=== PATIENT | female | born 1935 | race Caucasian/White ===

== ENCOUNTER 2018-05-20 15:04 | Emergency (ER) | payer MEDICARE ==
[~2018-05-20 15:04] MED LIST: ATEN25TA PO; BIOT25008 PO; CALC-190 PO; DILT360C16 PO; FISH OIL PO; FOLIC ACID PO; FURO40TA5 PO; ISOS20TA7 PO; LEVOTHYROXINE PO; LUTE40CA PO; MELO-106 PO; NITROGLYCERIN SPRAY SL; OXYB15TA PO; PREM125 PO; SENN-2 PO; UBID100C10 PO; VITA400C25 PO; VITAMIN 2 PO; VITAMIN D PO; WARFARIN PO
[2018-05-20 16:03] LABS: EOSINOPHILS % (AUTO) 2.6 % (0.0-8.0); HEMATOCRIT 39.3 % (36-48); LYMPHOCYTES % (AUTO) 19.6 % (21.0-51.0); MEAN CORPUSCULAR HGB CONC 32.4 g/dL (32.0-36.0); MEAN CORPUSCULAR VOLUME 92.6 fL (79-99); MONOCYTES % (AUTO) 10.3 % (3.0-13.0); NEUTROPHILS % (AUTO) 66.5 % (40.0-77.0); PLATELET COUNT (AUTO) 113 K/uL (130-400); RED BLOOD CELL COUNT(AUTO) 4.25 MIL/uL (4.00-5.50); RED CELL DISTRIBUTION WIDTH 15.9 % (11.0-15.5); WHITE BLOOD COUNT (AUTO) 9.8 K/uL (4.8-10.8)
[2018-05-20 16:04] LABS: APPEARANCE,URINE Clear (CLEAR); BILIRUBIN,URINE Negative (NEGATIVE); COLOR,URINE Dark Yellow (YELLOW); GLUCOSE, URINE (UA) Negative (NEGATIVE); KETONES,URINE Trace mg/dL (NEGATIVE); LEUKOCYTE ESTERASE ,URINE Moderate (NEGATIVE); NITRATE,URINE Negative (NEGATIVE); OCCULT BLOOD,URINE Negative (NEGATIVE); PROTEIN,URINE POS 1+ (NEGATIVE)
[2018-05-20 16:10] LABS: CREATININE 1.9 mg/dL (0.5-1.5); POTASSIUM 4.3 mmol/L (3.5-5.1)
[2018-05-20 16:12] LABS: INR 1.18 (0.85-1.15); PARTIAL THROMBOPLASTIN TIME 32.8 SEC (26.3-35.5); PROTHROMBIN TIME 12.4 SEC (9.6-11.6)
[2018-05-20 16:15] LABS: ALBUMIN 3.5 g/dL (3.5-5.0); BILIRUBIN,TOTAL 1.1 mg/dL (0.2-1.0); TOTAL PROTEIN, SERUM 7.4 g/dL (6.0-8.3)
[2018-05-20 16:19] LABS: BACTERIA,URINE Moderate /HPF (None Seen); RBC,URINE 0-1 /HPF (0-1); SQUAMOUS EPITHELIAL CELL,UR Few /HPF (0-2)
[2018-05-20] MEDS ORDERED: FUROSEMIDE 10 MG/ML 2ML VIAL ONE (18:08)
== END 2018-05-20 19:39 | disposition home or self-care (01) ==
LOC: EDH 15:04
DX: I88.9 Nonspecific lymphadenitis, unspecified (principal); I87.8 Other specified disorders of veins; I48.91 Unspecified atrial fibrillation; Z88.0 Allergy status to penicillin; Z88.1 Allergy status to other antibiotic agents
CPT/HCPCS: 36415; 70490; 71045; 71250; 80053; 81001; 82550; 84484; 85025; 85610; 85730; 93005; 96374; 99284; J1940

== ENCOUNTER 2018-07-27 07:30 | Observation (INO) | payer MEDICARE ==
[2018-07-26 11:10] VITALS: BP 133/76
[2018-07-26 11:20] LABS: BASOPHILS % (AUTO) 0.6 % (0.0-5.0); EOSINOPHILS % (AUTO) 1.9 % (0.0-8.0); HEMATOCRIT 37.7 % (36-48); LYMPHOCYTES % (AUTO) 11.6 % (21.0-51.0); MEAN CORPUSCULAR HEMOGLOBIN 31.5 pg (27.0-33.0); MEAN CORPUSCULAR HGB CONC 33.3 g/dL (32.0-36.0); MEAN CORPUSCULAR VOLUME 94.6 fL (79-99); MONOCYTES % (AUTO) 11.6 % (3.0-13.0); NEUTROPHILS % (AUTO) 74.3 % (40.0-77.0); PLATELET COUNT (AUTO) 133 K/uL (130-400); RED BLOOD CELL COUNT(AUTO) 3.98 MIL/uL (4.00-5.50); RED CELL DISTRIBUTION WIDTH 15.8 % (11.0-15.5)
[2018-07-26 11:28] LABS: CREATININE 1.9 mg/dL (0.5-1.5); POTASSIUM 4.6 mmol/L (3.5-5.1)
[2018-07-26 11:47] LABS: INR 1.15 (0.85-1.15); PARTIAL THROMBOPLASTIN TIME 34.4 SEC (26.3-35.5)
[2018-07-27] VITALS (7 sets, daily range): BP systolic 91–138; BP diastolic 50–105
[~2018-07-27] VITALS: Ht 149.9 cm; Wt 61.7 kg
[~2018-07-27 07:30] MED LIST changes: +APIX5TAB PO; -BIOT25008 PO; -CALC-190 PO; +CHOL100040 PO; +DILT120C92 PO; +DILT180C86 PO; -DILT360C16 PO; -FOLIC ACID PO; +FURO-151 PO; -FURO40TA5 PO; -ISOS20TA7 PO; +LEVO100T4 PO; -LEVOTHYROXINE PO; +PRAV40TA3 PO; +SENN-141 PO; -SENN-2 PO; -UBID100C10 PO; -VITA400C25 PO; -VITAMIN 2 PO; -VITAMIN D PO; -WARFARIN PO
[2018-07-27] MEDS ORDERED: SODIUM CHLORIDE 0.9% 1000ML 1,000 ML IV ONE (09:24)
[2018-07-27] MEDS ORDERED: MIDAZOLAM HCL 1 MG/ML 2ML VIAL ONE ×4 (13:27→14:41)
[2018-07-27] MEDS ORDERED: VANCOMYCIN 1GM+NS 250ML 500 ML IV ONE (13:28)
[2018-07-27] MEDS ORDERED: LIDOCAINE HCL 1% MDV 50ML VIAL ONE (13:28)
[2018-07-27] MEDS ORDERED: FENTANYL CITRATE PF 50 MCG/1 ML 2ML VIAL ONE (13:28)
[2018-07-27] MEDS ORDERED: BUPIVACAINE/PF 0.25% 30ML VIAL IJ ONE (13:31)
[2018-07-27] MEDS ORDERED: FAMOTIDINE/PF 20 MG/2 ML VIAL IV ONE (15:10)
[2018-07-27] MEDS: ACETAMINOPHEN 325 MG TAB PO PRN (17:11)
[2018-07-27] MEDS ORDERED: ONDANSETRON HCL 4 MG/2 ML VIAL ONE (17:33)
[2018-07-27] MEDS ORDERED: DILTIAZEM HCL 120 MG CAP.SR.24H PO ONE (20:12)
[2018-07-27] MEDS ORDERED: OXYBUTYNIN CHLORIDE 5 MG TABLET ONE ×2 (20:13→20:16)
[2018-07-27] MEDS ORDERED: DILTIAZEM HCL 180 MG CAP.SR.24H PO ONE (20:16)
[2018-07-27] MEDS: MELOXICAM 7.5 MG TABLET PO SCH (20:20)
[2018-07-27] MEDS ORDERED: OXYBUTYNIN 5 MG TAB.SR.24H PO SCH (21:00)
[2018-07-27] MEDS ORDERED: SENNOSIDES PO SCH (21:00)
[2018-07-27] MEDS ORDERED: SIMVASTATIN 20 MG TABLET PO SCH (21:00)
[2018-07-27] MEDS ORDERED: DOCUSATE SODIUM PO SCH (21:00)
--- NOTE | 2018-07-27 21:00 | NUR ---
PT IN BED, AAOX3. PERRLA. NO DISTRESS NOTED. PT STATES LAST BM 07/26. HOME MEDICATIONS NOT AT BEDSIDE. SO HAD TO CALL PHARMACY. PT NOT ABLE TO RECEIVE HER SENNA DUE TO DIFFERENT DOSE. PT STATES NO PAIN. INCISION IS CLEAN AND DRY. LEFT SLING IN PLACE. BEDREST WAS OVER AT 1930.
--- NOTE | 2018-07-27 22:37 | NUR ---
SPOKE TO MONICA BOO. NOTIFIED HIM ABOUT PENDING TO SEE PT. TOLD HIM PT HAD BEEN LEAD CHANGE DURING THE DAY AND WAS TRANSFERRED TO HOSPITALIST CARE.
[2018-07-28 01:38] VITALS: BP 140/88
[2018-07-28 04:00] VITALS: BP 132/54
[2018-07-28] MEDS ORDERED: LEVOTHYROXINE 100 MCG TABLET PO SCH (06:30)
[2018-07-28 07:39] VITALS: BP 128/75
[2018-07-28] MEDS: ACETAMINOPHEN 325 MG TAB PO PRN (07:40)
[2018-07-28] MEDS: MELOXICAM 7.5 MG TABLET PO SCH (07:40)
[2018-07-28] MEDS ORDERED: LUTEIN 40 MG PO SCH (09:00)
[2018-07-28] MEDS ORDERED: FUROSEMIDE 40 MG TABLET PO SCH (09:00)
[2018-07-28] MEDS ORDERED: DILTIAZEM HCL 180 MG CAP.SR.24H PO SCH (09:00)
[2018-07-28] MEDS ORDERED: ESTROGENS,CONJUGATED 0.625 MG TAB PO SCH (09:00)
[2018-07-28] MEDS ORDERED: ATENOLOL 25 MG TABLET PO SCH (09:00)
[2018-07-28 11:57] VITALS: BP 95/54
[2018-07-29] MEDS ORDERED: DILTIAZEM HCL 120 MG CAP.SR.24H PO SCH (09:00)
== END 2018-07-28 14:42 | disposition home or self-care (01) ==
LOC: DAH 07:30 → DAHIP 07:31 → 2DH 15:40
PROVIDERS: ADMIT Internal Medicine; ATTEND Internal Medicine
DX: I48.0 Paroxysmal atrial fibrillation (principal); I44.30 Unspecified atrioventricular block; C50.919 Malignant neoplasm of unspecified site of unspecified female breast; I12.9 Hypertensive chronic kidney disease with stage 1 through stage 4 chronic kidney disease, or unspecified chronic kidney disease; N18.9 Chronic kidney disease, unspecified; I45.9 Conduction disorder, unspecified; M54.17 Radiculopathy, lumbosacral region; Z95.0 Presence of cardiac pacemaker
CPT/HCPCS: 33216; 36415; 71045; 80048; 85025; 85610; 85730; 93005; A4606; C1769 ×2; C1898; G0378 ×31; J2250 ×4; J3010; J3370; J3490 ×2; J7030; 99156; 99157; J2405

== ENCOUNTER → 2018-08-08 | Outpatient (CLI) | payer MEDICARE | END | disposition home or self-care (01) | LOC: RAH 11:08 | PROVIDERS: ATTEND Family Medicine | DX: R91.1 Solitary pulmonary nodule (principal); R59.0 Localized enlarged lymph nodes; M47.812 Spondylosis without myelopathy or radiculopathy, cervical region; Q25.49 Other congenital malformations of aorta | CPT/HCPCS: 70490 ==

== ENCOUNTER → 2018-08-20 | Outpatient (CLI) | payer MEDICARE | END | disposition home or self-care (01) | LOC: RAH 13:20 | PROVIDERS: ATTEND Family Medicine | DX: I51.7 Cardiomegaly (principal) | CPT/HCPCS: 71250 ==

== ENCOUNTER → 2019-08-01 | Outpatient (CLI) | payer MEDICARE ==
[~2019-08-01] MED LIST changes: -OXYB15TA PO; +OXYB15TA19 PO
== END | disposition home or self-care (01) ==
LOC: RAH 09:21
PROVIDERS: ATTEND Family Medicine
DX: M46.1 Sacroiliitis, not elsewhere classified (principal); M43.16 Spondylolisthesis, lumbar region
CPT/HCPCS: 72192

== ENCOUNTER 2019-08-15 06:00 | Day surgery (SDC) | payer MEDICARE ==
[2019-08-13 11:34] VITALS: BP 142/68
[2019-08-15] VITALS (11 sets, daily range): BP systolic 107–136; BP diastolic 46–78
[~2019-08-15] VITALS: Ht 149.9 cm; Wt 55.0 kg
[~2019-08-15 06:00] MED LIST changes: +DOCU100P MC; -MELO-106 PO; +vitamin b12 PO; +vitamin c PO
[2019-08-15] MEDS ORDERED: LACTATED RINGERS 1000ML 1,000 ML IV ONE (06:46)
[2019-08-15] MEDS ORDERED: CLINDAMYCIN 900 MG/D5% WATER 50 ML IV ONE (06:46)
[2019-08-15] MEDS ORDERED: SODIUM BICARB [NEONATAL] 4.2% 10ML SYG ONE (07:05)
[2019-08-15] MEDS ORDERED: LIDOCAINE HCL 1% 20 ML VIAL ONE ×2 (07:05→07:46)
[2019-08-15] MEDS ORDERED: MIDAZOLAM HCL 1 MG/ML 2ML VIAL ONE (07:27)
[2019-08-15] MEDS ORDERED: PROPOFOL 10 MG/ML 20ML VIAL IV ONE (07:27)
[2019-08-15] MEDS ORDERED: FENTANYL CITRATE PF 50 MCG/1 ML 2ML VIAL ONE (07:28)
[2019-08-15] MEDS ORDERED: LIDOCAINE PF 2% 5ML ABBOJECT ONE (07:36)
[2019-08-15] MEDS ORDERED: IOPAMIDOL 10 ML VIAL ONE (07:40)
[2019-08-15] MEDS ORDERED: DEXAMETHASONE SOD PHOSPHATE 10MG/ML 1ML VIAL ONE (07:54)
[2019-08-15] MEDS ORDERED: ONDANSETRON HCL 4 MG/2 ML VIAL ONE (07:54)
[2019-08-15] MEDS ORDERED: CLINDAMYCIN 900 MG/D5% WATER 50 ML IV PRN (08:00)
--- NOTE | 2019-08-15 08:40 | NUR ---
PATIENT ARRIVED TO DAY PATIENT VIA STRETCHER BY RAMY DORADO. PATIENT AAOX3, RESPIRATIONS UNLABORED, VITAL SIGNS STABLE. BANDAIDS X2 TO LOWER BACK ON RIGHT/LEFT SIDE. BANDAIDS DRY/INTACT. NO DRAINAGE OR BLEEDING NOTED. PATIENT DENIES ANY PAIN AT THIS TIME.
--- NOTE | 2019-08-15 09:12 | NUR ---
DISCHARGE INSTRUCTIONS PROVIDED TO PATIENT AND PATIENT'S SPOUSE. INSTRUCTED TO CALL DR FREY OFFICE FOR FOLLOW UP APPOINTMENT TO BE SEEN IN 10 DAYS, BOTH VERBALIZED UNDERSTANDING. HANDOUTS PROVIDED ON SURGICAL SITE INFECTIONS AND ALL QUESTIONS/CONCERNS ADDRESSED.
--- NOTE | 2019-08-15 09:25 | NUR ---
PATIENT DISCHARGED FROM FACILITY VIA WHEELCHAIR AND ASSISTED INTO PRIVATE VEHICLE DRIVEN BY SPOUSE.
== END 2019-08-15 09:25 | disposition home or self-care (01) ==
LOC: DAH 06:00
PROVIDERS: ATTEND Neurological Surgery
DX: M53.2X8 Spinal instabilities, sacral and sacrococcygeal region (principal); M53.88 Other specified dorsopathies, sacral and sacrococcygeal region; I25.10 Atherosclerotic heart disease of native coronary artery without angina pectoris; M19.90 Unspecified osteoarthritis, unspecified site; Z88.1 Allergy status to other antibiotic agents; Z88.8 Allergy status to other drugs, medicaments and biological substances; Z88.0 Allergy status to penicillin; Z95.0 Presence of cardiac pacemaker; Z79.899 Other long term (current) drug therapy; Z79.01 Long term (current) use of anticoagulants; Z82.49 Family history of ischemic heart disease and other diseases of the circulatory system
CPT/HCPCS: 72202; A4215; A4221; A4222; A4223; A4663; G0260; J1030 ×2; J1100; J2001; J2250; J2405; J2704; J3010; J3490 ×2; J7030 ×2; J7120; Q9966

== ENCOUNTER 2019-09-19 21:44 | Observation (INO) | payer MEDICARE ==
[~2019-09-19] VITALS: Ht 149.9 cm; Wt 53.7 kg
[2019-09-19] MEDS ORDERED: ASPIRIN 325 MG TABLET ONE (21:51)
[2019-09-19 22:01] LABS: BASOPHILS % (AUTO) 0.2 % (0.0-5.0); EOSINOPHILS % (AUTO) 0.4 % (0.0-8.0); HEMATOCRIT 37.7 % (36-48); MEAN CORPUSCULAR HEMOGLOBIN 31.2 pg (27.0-33.0); MEAN CORPUSCULAR HGB CONC 34.2 g/dL (32.0-36.0); MEAN CORPUSCULAR VOLUME 91.1 fL (79-99); MONOCYTES % (AUTO) 12.6 % (3.0-13.0); NEUTROPHILS % (AUTO) 73.4 % (40.0-77.0); PLATELET COUNT (AUTO) 154 K/uL (130-400); RED BLOOD CELL COUNT(AUTO) 4.14 MIL/uL (4.00-5.50); RED CELL DISTRIBUTION WIDTH 13.1 % (11.0-15.5); WHITE BLOOD COUNT (AUTO) 13.6 K/uL (4.8-10.8)
[2019-09-19 22:16] LABS: INR 0.98 (0.85-1.15); PROTHROMBIN TIME 10.6 SEC (9.6-11.6)
[2019-09-19 22:17] LABS: CREATININE 1.1 mg/dL (0.5-1.5); POTASSIUM 3.2 mmol/L (3.5-5.1)
[2019-09-19 22:20] LABS: ALBUMIN 4.1 g/dL (3.5-5.0)
[2019-09-19] MEDS ORDERED: POTASSIUM BICARB/CIT AC 25 MEQ TABLET.EFF ONE (22:34)
[2019-09-19] MEDS ORDERED: NITROGLYCERIN 0.4 MG SL TAB SL ONE (22:47)
[2019-09-19] MEDS ORDERED: NITROGLYCERIN 0.4 MG SL TAB SL PRN (23:30)
[2019-09-19] MEDS ORDERED: ONDANSETRON HCL 4 MG/2 ML VIAL IV PRN (23:30)
[2019-09-19] MEDS ORDERED: ACETAMINOPHEN 325 MG TAB PO PRN ×2 (23:30)
[2019-09-19] MEDS ORDERED: LACTULOSE 20 GM/30 ML UDCUP PO PRN (23:30)
[2019-09-20 00:41] VITALS: BP 116/75
[2019-09-20 02:01] LABS: CHOLESTEROL 194 mg/dL (<200); HDL CHOLESTEROL 129 mg/dL (35-85); LDL DIRECT 80 mg/dL (0-99); TRIGLYCERIDES 122 mg/dL (30-200)
[2019-09-20 03:53] VITALS: BP 107/58
[2019-09-20 04:04] LABS: BASOPHILS % (AUTO) 0.3 % (0.0-5.0); EOSINOPHILS % (AUTO) 0.3 % (0.0-8.0); HEMATOCRIT 33.3 % (36-48); LYMPHOCYTES % (AUTO) 13.5 % (21.0-51.0); MEAN CORPUSCULAR HEMOGLOBIN 31.3 pg (27.0-33.0); MEAN CORPUSCULAR HGB CONC 34.2 g/dL (32.0-36.0); MEAN CORPUSCULAR VOLUME 91.5 fL (79-99); MONOCYTES % (AUTO) 12.7 % (3.0-13.0); NEUTROPHILS % (AUTO) 72.9 % (40.0-77.0); PLATELET COUNT (AUTO) 139 K/uL (130-400); RED BLOOD CELL COUNT(AUTO) 3.64 MIL/uL (4.00-5.50); RED CELL DISTRIBUTION WIDTH 13.2 % (11.0-15.5); WHITE BLOOD COUNT (AUTO) 11.9 K/uL (4.8-10.8)
[2019-09-20 04:27] LABS: POTASSIUM 3.7 mmol/L (3.5-5.1)
[2019-09-20 08:16] VITALS: BP 107/63
[2019-09-20] MEDS ORDERED: FAMOTIDINE 20MG TAB 20 MG TAB PO SCH (09:00)
[2019-09-20] MEDS ORDERED: ASPIRIN 81MG TAB.CHEW PO SCH (09:00)
[2019-09-20] MEDS ORDERED: METOPROLOL TARTRATE 25 MG TAB PO SCH (09:00)
[2019-09-20 11:24] VITALS: BP 99/60
[2019-09-20 16:29] VITALS: BP 110/68
--- NOTE | 2019-09-20 18:38 | NUR ---
DISCHARGE INSTRUCTIONS/INFORMATION GIVEN TO PATIENT. TEACH BACK METHOD USED TO EDUCATE PATIENT ON CHANGES IN MEDS, DIET, S/S TO MONITOR, WHEN TO CALL MD, AND F/U APPOINTMENTS. NEW PRESCRIPTION CALLED IN TO [facility]ERGERON. I SPOKE WITH SOSA. PATIENT WAS INSTRUCTED TO HOLD LEVOTHYROXINE FOR 1 WEEK AND RESUME AT [facility] DAILY AFTER 1 WEEK HOLD. PIV REMOVED. TIP WAS INTACT. BLEEDING MANUALLY CONTROLLED. TELE PACK REMOVED AND RETURNED. ALL BELONGINGS WERE PACKED.
[2019-09-20] MEDS ORDERED: ATORVASTATIN CALCIUM 20 MG TABLET PO SCH (21:00)
== END 2019-09-20 18:28 | disposition home or self-care (01) ==
LOC: EDH 21:44 → EDHIP 23:21 → 4CH 23:53
PROVIDERS: ADMIT Internal Medicine; ATTEND Internal Medicine
DX: R07.89 Other chest pain (principal); I48.91 Unspecified atrial fibrillation; J44.9 Chronic obstructive pulmonary disease, unspecified; E87.6 Hypokalemia; I12.9 Hypertensive chronic kidney disease with stage 1 through stage 4 chronic kidney disease, or unspecified chronic kidney disease; N18.9 Chronic kidney disease, unspecified; Z95.0 Presence of cardiac pacemaker; Z88.0 Allergy status to penicillin; Z88.6 Allergy status to analgesic agent; Z88.1 Allergy status to other antibiotic agents; Z88.5 Allergy status to narcotic agent; Z88.8 Allergy status to other drugs, medicaments and biological substances
CPT/HCPCS: 36415 ×2; 71045; 80048; 80053; 80061; 82550; 84443; 84484 ×3; 85025 ×2; 85610; 85730; 93005 ×4; 99291; G0378 ×2